=== PATIENT | female | born 1985 | race Caucasian/White ===

== ENCOUNTER 2019-10-27 16:01 | Inpatient (IN) | payer OTHER ==
[~2019-10-27] VITALS: Ht 170.2 cm; Wt 3.2 kg
[2019-11-27] MEDS ORDERED: PRENATAL MULTI1 EAC3 PO (07:48)
== END 2019-11-30 09:41 | disposition home or self-care (01) | DRG 788 ==
LOC: OB/GYN 11-23 14:45 → O/R 11-27 07:16 → OB/GYN 11-27 14:27
PROVIDERS: ADMIT Obstetrics & Gynecology Maternal & Fetal Medicine
PROC: 4A033R1 Measurement of Arterial Saturation, Peripheral, Percutaneous Approach (ICD-10-PCS; 2019-11-27)
PROC: 4A1HXFZ Monitoring of Products of Conception, Cardiac Rhythm, External Approach (ICD-10-PCS; 2019-11-27)
PROC: 3E033VJ Introduction of Other Hormone into Peripheral Vein, Percutaneous Approach (ICD-10-PCS; 2019-11-27)
PROC: 10D00Z1 Extraction of Products of Conception, Low, Open Approach (ICD-10-PCS; principal; 2019-11-27 12:45)
DX: O64.1XX0 Obstructed labor due to breech presentation, not applicable or unspecified (principal); Z3A.39 39 weeks gestation of pregnancy; Z37.0 Single live birth

== ENCOUNTER 2019-11-23 15:34 | Outpatient (CLI) | payer OTHER | END 2019-11-23 16:40 | disposition home or self-care (01) | LOC: NST 15:34 | DX: Z34.83 Encounter for supervision of other normal pregnancy, third trimester (principal) ==

== ENCOUNTER 2019-12-19 22:59 | Emergency (ER) | payer OTHER ==
[~2019-12-19] VITALS: Ht 170.2 cm; Wt 82.6 kg
[~2019-12-19 22:59] MED LIST: PRENATAL MULTI1 EAC3 PO
[2019-12-20] MEDS ORDERED: FLAGYL500MG PO (03:41)
[2019-12-20] MEDS ORDERED: CIPRO500 MG PO (03:41)
[2019-12-20] MEDS ORDERED: PERCOCET 5-3251 EACH PO (03:44)
== END 2019-12-20 09:00 | disposition home or self-care (01) ==
LOC: ER 22:59
DX: L05.01 Pilonidal cyst with abscess (principal)

== ENCOUNTER 2020-03-16 08:31 | Outpatient (CLI) | payer OTHER ==
[~2020-03-16 08:31] MED LIST changes: +CIPRO500 MG PO; +FLAGYL500MG PO; +PERCOCET 5-3251 EACH PO
== END 2020-03-16 08:32 | disposition home or self-care (01) ==
LOC: SONOGRAMA 08:31
PROVIDERS: ATTEND Internal Medicine Endocrinology, Diabetes & Metabolism
DX: E04.1 Nontoxic single thyroid nodule (principal)

== ENCOUNTER 2021-02-22 14:16 | Outpatient (CLI) | payer OTHER | END 2021-02-22 14:39 | disposition home or self-care (01) | LOC: RAD 14:16 | DX: M19.90 Unspecified osteoarthritis, unspecified site (principal) ==